=== PATIENT | male | born 1985 | race Caucasian/White ===

== ENCOUNTER 2017-08-28 05:52 | Emergency (ER) | payer OTHER ==
[~2017-08-28] VITALS: Ht 182.9 cm; Wt 63.5 kg
[2017-08-28] MEDS ORDERED: CYCLOBENZAPRINE10 MG PO (06:08)
[2017-08-28] MEDS ORDERED: KEFLEX500 MG PO (07:11)
[2017-11-15] MEDS ORDERED: INDOMETHACIN50 MG PO (06:47)
== END 2017-08-28 07:30 | disposition home or self-care (01) ==
LOC: ED 05:52
DX: J02.0 Streptococcal pharyngitis (principal); B95.0 Streptococcus, group A, as the cause of diseases classified elsewhere; F17.200 Nicotine dependence, unspecified, uncomplicated; Z88.0 Allergy status to penicillin; Z88.5 Allergy status to narcotic agent
CPT/HCPCS: 87502; 87880; 99283

== ENCOUNTER → 2017-11-15 | Emergency (ER) | payer OTHER ==
[~2017-11-15] VITALS: Ht 182.9 cm; Wt 72.6 kg
[~2017-11-15] MED LIST: CYCLOBENZAPRINE10 MG PO; INDOMETHACIN50 MG PO; KEFLEX500 MG PO
== END ==
LOC: ED 05:31
PROC: 2W3LX1Z Immobilization of Right Lower Extremity using Splint (ICD-10-PCS; principal; 2017-11-15)
DX: S86.011A Strain of right Achilles tendon, initial encounter (principal); F17.200 Nicotine dependence, unspecified, uncomplicated; Z88.0 Allergy status to penicillin; Z88.5 Allergy status to narcotic agent; X50.9XXA Other and unspecified overexertion or strenuous movements or postures, initial encounter
CPT/HCPCS: 29515; 73610; 99283

== ENCOUNTER 2024-10-05 13:08 | Day surgery (SDC) | payer OTHER ==
[~2024-10-05] VITALS: Ht 182.9 cm; Wt 61.4 kg
[~2024-10-05 13:08] MED LIST changes: +DOXYCYCLINE HY100 MG PO; +IBLOOD GLUCOSE TEST STRIP 1 EA TEST VI PRN; +LACTATED RINGER'S 1,000 ML IV SCH; +LIDOCAINE HCL 1% 5 ML SDV INJ ONE; +LIDOCAINE HCL 4% 50 ML BTL TOP SCH; +METRONIDAZOLE250 MG PO; +MIDAZOLAM HCL 5 MG/5 ML VIAL IV PRN; +PANTOPRAZOLE SO20 MG PO; +PEPTO-BISMOL U525 MG PO; +PERCOCET 5-3251 EACH PO; +SUCRALFATE1 GM PO; +TYLENOL325 MG PO; +fentaNYL citrate 100 MCG/2 ML VIAL IV PRN
[2024-10-05 13:21] VITALS: BP 99/68
[2024-10-05] MEDS ORDERED: fentaNYL citrate 100 MCG/2 ML VIAL ONE (14:04)
[2024-10-05] MEDS ORDERED: MIDAZOLAM HCL 5 MG/5 ML VIAL ONE (14:04)
[2024-10-05 15:27] VITALS: BP 98/76
--- NOTE | 2024-10-05 18:35 | OR ---
[facility] [address], [place] [address] Signed DATE OF OPERATION: 10/05/2024 SURGEON: Rae Kaur MD PREOPERATIVE DIAGNOSIS: History of perforated prepyloric ulcer, status post laparoscopic Henri patch repair on February 18, 2024. POSTOPERATIVE DIAGNOSIS: Complete healing of ulcer. No evidence of gastritis, ulceration or Helicobacter pylori. PROCEDURE: Esophagogastroduodenoscopy with biopsy. ANESTHESIA: Intravenous sedation; fentanyl 100 mcg, Versed at 4 mg. INDICATION: This 39-year-old white man is a patient of RONEN Rocha. He was seen by me through the emergency room with acute peritonitis and findings consistent with perforated ulcer. He underwent laparoscopy on February 18, 2024 and found to have a perforated prepyloric ulcer, which was treated with a laparoscopic Henri patch. Medications Protonix and Carafate was administered and he was treated empirically for H pylori, though it was uncertain if he in fact had H pylori. He has stayed on his medical regimen as recommended and is now here for upper endoscopy as a test of cure for his ulcer problem. He understands the risk of endoscopy including but not limited to bleeding, infection, and perforation and wished to proceed. FINDINGS: Complete healing was noted. There was no evidence whatsoever of prior ulcer disease or Henri patch and specifically no evidence of "H pylori based on CLOtest." He did have a somewhat poor flap valve, but no sign of esophagitis proper. Rugal folds were normal. Duodenum was normal. Vocal cords were normal. DESCRIPTION OF PROCEDURE: The patient was brought to the endoscopy suite and placed in lateral decubitus position after undergoing topical lidocaine hypopharyngeal anesthesia. He was given intravenous sedation upon slurred speech and nystagmus with full cardiopulmonary monitoring. A bite block was placed. An Olympus video upper endoscope was passed in the hypopharynx. Vocal cords were normal. Scope was easily passed in the esophagus throughout its length Electronically Signed By: RAE KAUR MD 10/05/24 1835 PATIENT NAME: REJI GOMEZ OPERATIVE REPORT DATE OF : 89 REPORT #: [id number] PHYSICIAN: RAE KAUR MD PCP: JAXON RONDON PA-C REPORT IS CONFIDENTIAL AND NOT TO BE RELEASED WITHOUT AUTHORIZATION [facility] [address], [place] [address] Signed it was normal. The scope was passed to the stomach which had some bilious fluid which was suctioned free. Rugal folds were normal and the antrum was normal. There was no sign of gastritis, inflammation, or ulcer. Careful inspection of the pylorus showed no evidence of abnormality and specifically no evidence of prior operation. The duodenum was normal. Scope was withdrawn. Biopsies were taken of the antrum for both CHRISTINA and pathologic testing. Retroflexed view showed a poor flap valve, but no sign of large hiatal hernia proper. The scope was withdrawn to the distal esophagus and biopsies obtained there. Scope was withdrawn carefully. No other findings of note. He was taken to the recovery room in good condition. CONCLUDING DIAGNOSIS: Completely healed perforated prepyloric ulcer. PLAN: Certainly can discontinue Carafate. We will review with him advisability of discontinuance of PPI medication in light of risk factors he may have. He will return to the ongoing care of RONEN Rocha. MD DAVID Friend/ANDRADE /[id number] cc: RONEN Rocha Copies: ~ Electronically Signed By: RAE KAUR MD 10/05/24 1835 PATIENT NAME: REJI GOMEZ MAYDA OPERATIVE REPORT DATE OF : 89 REPORT #: [id number] PHYSICIAN: RAE KAUR MD PCP: JAXON RONDON PA-C REPORT IS CONFIDENTIAL AND NOT TO BE RELEASED WITHOUT AUTHORIZATION
--- NOTE | 2024-10-06 10:39 | PATH ---
[facility] [address], [place] [address] Signed SPECIMEN(S): A ANTRUM BIOPSY SPECIMEN(S): B DISTAL ESOPHAGEAL BIOPSY SPECIMEN SOURCE: A. ANTRUM BIOPSY B. DISTAL ESOPHAGEAL BIOPSY CLINICAL HISTORY: History of perforated prepyloric duodenal ulcer February 2024, healed duodenal ulcer FINAL PATHOLOGIC DIAGNOSIS: A. Stomach, antrum, biopsy: - Gastric oxyntic mucosa with no significant pathologic changes - Negative for Helicobacter pylori with HE stains B. Esophagus, distal, biopsy: - Esophageal squamous mucosa with no significant pathologic changes BRP MICROSCOPIC EXAMINATION: Histologic sections of all submitted blocks are examined by light microscopy. These findings, together with the gross examination, support the pathologic diagnosis. GROSS DESCRIPTION: A. The specimen, labeled and designated "Rj, antrum biopsy," is received in formalin and consists of two joseph soft tissue fragments, ranging from 0.4-0.6 cm. Entirely submitted in (A1). B. The specimen, labeled and designated "Rj, distal esophageal biopsy," is received in formalin and consists of two joseph soft tissue fragments, ranging from 0.3-0.4 cm. Entirely submitted in (B1). VB (under the direct supervision of a pathologist) The Gross Description was prepared using a voice recognition system. The report was reviewed for accuracy; however, sound-alike word errors, addition and/or deletions may occur. If there is any question about this report, please contact Client Services. ADDITIONAL NOTES: Immunohistochemical and/or in situ hybridization studies if performed in this case included appropriate positive controls that reacted as expected. This test was developed and its performance PATIENT NAME: REJI GOMEZN PATHOLOGY DATE OF : 89 REPORT #: [id number] PHYSICIAN: JOSE BAEZ PCP: JAXON RONDON PA-C REPORT IS CONFIDENTIAL AND NOT TO BE RELEASED WITHOUT AUTHORIZATION [facility] [address] [facility] [place] [address] Signed characteristics determined by [facility]. It has not been cleared or approved by the U.S. Food and Drug Administration. The FDA has determined that such clearance or approval is not necessary. This test is used for clinical purposes. It should not be regarded as investigational or for research. [facility] is certified under the Clinical Laboratory Improvement Amendments of 1988 (CLIA) as qualified to perform high complexity clinical laboratory testing. PERFORMING LABORATORY: Technical component was performed by [facility], [address] [place] [address] (CLIA# [id number]). Professional interpretation was performed by [facility] - [address] [id number] Diagnostician: Ranjit Everett MD Pathologist Electronically Signed 10/06/2024 Copies: ~ PATIENT NAME: REJI GOMEZN PATHOLOGY DATE OF : 89 REPORT #: [id number] PHYSICIAN: JOSE PATHOLOGY PCP: JAXON RONDON PA-C REPORT IS CONFIDENTIAL AND NOT TO BE RELEASED WITHOUT AUTHORIZATION
== END 2024-10-05 15:39 | disposition home or self-care (01) ==
LOC: DS 13:08
PROVIDERS: ATTEND Surgery
PROC: 0DB68ZX Excision of Stomach, Via Natural or Artificial Opening Endoscopic, Diagnostic (ICD-10-PCS; 2024-10-05)
PROC: 0DB38ZX Excision of Lower Esophagus, Via Natural or Artificial Opening Endoscopic, Diagnostic (ICD-10-PCS; principal; 2024-10-05 14:00)
DX: K65.9 Peritonitis, unspecified (principal); K31.89 Other diseases of stomach and duodenum; Z88.0 Allergy status to penicillin; Z88.5 Allergy status to narcotic agent
CPT/HCPCS: 88305; 99153; G0500; J2250; J3010